=== PATIENT | male | born 1980 | race Caucasian/White ===

== ENCOUNTER 2025-01-07 08:50 | Outpatient (AMB) | payer BC, SELFPAY ==
--- NOTE | 2025-01-07 09:12 | MHC.OFFWIV ---
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 Intake Note: Patient here for tick bite under right arm. Patient Tobacco Use Status: Never used Tobacco Allergies No Known Allergies Allergy (Verified 01/07/25 09:13) Do you need a note to return to daycare/school/sports/work: No HPI HPI Comments History of Present Illness Details This is a 44-year-old male with no stated past medical history who woke this morning with a tick imbedded in his anterior chest wall. Patient took a shower, picked the tick off of his chest but tick parts visibly remain. He has no additional physical concerns. [facility] Social History Patient Tobacco Use Status: Never used Tobacco Review of Systems Const All systems reviewed & are unremarkable except as noted in HPI and below Denies chills, Denies fatigue and Denies fever(s) Eyes Reports no additional complaints ENT Reports no additional complaints Card Reports no additional complaints Resp Reports no additional complaints GI Reports no additional complaints Reports no additional complaints Musc Reports no additional complaints Skin/Breast Details: embedded tick right chest Neuro Reports no additional complaints Psych Reports no additional complaints Endo Reports no additional complaints and Denies fatigue Adan/Lymph Reports no additional complaints Physical Exam Vital Signs: Last Vital Signs Pulse 66 01/07/25 09:13 BP 118/70 01/07/25 09:13 Pulse Ox 98 01/07/25 09:13 Oxygen Delivery Method Room Air 01/07/25 09:13 Const General: cooperative, healthy appearing, comfortable and no acute distress; No ill appearing Nutritional Appearance: average body habitus Orientation/consciousness: patient oriented x3 Limitations: no limitations Skin Other: hyperpigmented foreign body right anterior chest wall, no surrounding erythema, edema or exudates Neuro General: patient oriented x3 Psych Appearance: grossly normal Mental Status: mental status grossly normal Insight: Good insight present (Psych) Judgement: Good judgement present (Psych) Office Procedures Incision and Drainage Incision and drainage performed by: Allison Mathews Informed consent given: Yes Consent signed: Yes Time out checklist: patient Location: right anterior chest wall Anesthesia: regional (topical 2% lidocaine) Incision with: needle (18g) Drainage quality: minimal-none Lesion: other (foreign body removal) Lesion size (cm): 2 (mm) Hemostasis: pressure Dressing: other (bandaid) Patient tolerated procedure: well Complications: No Additional details: Remnants of tick body are completely removed utilizing 2% lidocaine and an 18 gauge needle. Assessment & Plan Assessment & Plan (1) Tick bite with subsequent removal of tick: Comment: Foreign body completely removed. Patient tolerated the procedure well. Code(s): W57.XXXA - Bitten or stung by nonvenomous insect and other nonvenomous arthropods, initial encounter Plan: Doxycycline 200 mg x 1. Medications: New doxycycline hyclate 200 mg (2 x 100 mg) PO ONCE 2 caps 0RF Coding Level of Care Code Est Pt Level 4 (31581) Diagnoses Tick bite with subsequent removal of tick W57.XXXA Time Spent (min) 30
[2025-01-07 09:13] VITALS: BP 118/70; PULSE 66; O2SAT 98
== END 2025-01-07 09:51 | disposition home or self-care (01) ==
PROVIDERS: PCP Internal Medicine; Visit Provider Physician Assistant
DX: T63.481A Toxic effect of venom of other arthropod, accidental (unintentional), initial encounter (principal)

== ENCOUNTER → 2025-01-07 08:50 | Outpatient (BNVA) | payer BC, SELFPAY | PROVIDERS: PCP Internal Medicine; Visit Provider Physician Assistant ==

== ENCOUNTER 2025-02-25 09:53 | Outpatient (AMB) | payer BC, SELFPAY ==
--- NOTE | 2025-02-25 09:30 | A.OFFPC_ITS ---
Intake Visit Reasons: establish care Allergies No Known Allergies Allergy (Verified 01/07/25 09:13) Tobacco use date assessed: 02/25/25 Dental Screening Dental Screen Date: 02/25/25 [facility] Social History Patient Tobacco Use Status: Never used Tobacco Questionnaire PHQ-9 Over the last 2 weeks, how often have you been bothered by any of the following problems? 1. Little interest or pleasure in doing things: not at all 2. Feeling down, depressed, or hopeless: not at all 3. Trouble falling or staying asleep, or sleeping too much: not at all 4. Feeling tired or having little energy: not at all 5. Poor appetite or overeating: not at all 6. Feeling bad about yourself - or that you are a failure or have let yourself or your family down: not at all 7. Trouble concentrating on things, such as reading the newspaper or watching television: not at all 8. Moving or speaking so slowly that other people could have noticed. Or the opposite - being so fidgety or restless that you have been moving around a lot more than usual: not at all 9. Thoughts that you would be better off or of hurting yourself in some way: not at all Total score: 0 Source: Developed by Drs. Servando Jack, Thu Langston, Raj Han and colleagues, with an educational karis from [employer]. Thrive Questionnaire Date Thrive assessed: 02/25/25 I am a: Patient What is your living situation today?: I have a steady place to live Within the past 12 months, did the food you bought not last and you didn't have the money to get more?: Never true Within the past 12 months, did you worry whether your food would run out before you got money to buy more?: Never true Do you have trouble paying for medicines?: No Do you have trouble getting transportation to medical appointments?: No Do you have trouble paying your heating and electricity bill?: No Do you have trouble taking care of your child, family member or friend?: No Do you have trouble with day-to-day activities such as bathing, preparing meals, shopping, managing finances, etc.?: No Are you currently unemployed and looking for a job?: No Are you interested in more education?: No THRIVE Score: 0 Coding
--- NOTE | 2025-02-25 09:56 | MHC.PC.OV ---
Vital Signs 02/25/25 10:10 Height 5 ft 9.5 in Weight 170 lb 0.8 oz BMI 24.7 BP 116/60 Blood Pressure Location Rt brachial Pulse 73 Pulse Source Pulse Oximeter Temp 99.3 F Pulse Oximetry (%) 98 Intake Visit Reasons: establish care Intake Note: no issues had hernia surgery a few years ago but just moved into a house a few weeks ago and when he bent over he felt a sharp pain but it went awat. Allergies bee venom protein (honey bee) Allergy (Mild, Verified 02/25/25 10:16) Hives Medication List - Last Reconciled 02/25/25 by Lilly Escoto PA-C No Known Home Meds Tobacco use date assessed: 02/25/25 Dental Screening Dental Screen Date: 02/25/25 Did you have a dental visit in the last 12 months?: Yes Did you have a dental problem in the last 6 months where you did not have access to dental care?: No Was dental information given to patient?: No HPI establish care HPI Details The patient is a 45-year-old male presenting for a new patient appointment and preventative care. He reports a history of an inguinal hernia, which was surgically repaired three years ago. Recently, he experienced a sharp pain on the left side while bending over, lasting about 10 seconds, but has not noticed any bulge or recurrence of symptoms. The patient also mentions a tick bite in December, for which he received doxycycline treatment. He denies any current symptoms related to the tick bite. Additionally, the patient has a history of a skin lesion that was excised due to concerns about cancer. He plans to follow up with a director of elementary education for further evaluation. The patient reports past vision issues attributed to stress, which have since improved after consultation with a retinal specialist. [facility] Medical History (Updated 02/25/25 @ 11:51 by Lilly Escoto PA-C) Annual physical exam Establishing care with new doctor, encounter for Preventative health care Skin lesions Surgical History History of inguinal hernia repair Social History Housing: House Patient Tobacco Use Status: Never used Tobacco e-Cigarette/Vaping Use: Never Used service: No Current occupational status: employed Current occupation: professor Current occupational exposures/hazards: No Questionnaire PHQ-9 Over the last 2 weeks, how often have you been bothered by any of the following problems? 1. Little interest or pleasure in doing things: not at all 2. Feeling down, depressed, or hopeless: not at all 3. Trouble falling or staying asleep, or sleeping too much: not at all 4. Feeling tired or having little energy: not at all 5. Poor appetite or overeating: not at all 6. Feeling bad about yourself - or that you are a failure or have let yourself or your family down: not at all 7. Trouble concentrating on things, such as reading the newspaper or watching television: not at all 8. Moving or speaking so slowly that other people could have noticed. Or the opposite - being so fidgety or restless that you have been moving around a lot more than usual: not at all 9. Thoughts that you would be better off or of hurting yourself in some way: not at all Total score: 0 Depression Screening Interpretation: Negative Depression Screening Done: Yes [id number] - PHQ-9 Billing: Yes Source: Developed by Drs. Servando Jack, Thu Langston, Raj Han and colleagues, with an educational karis from [employer]. Thrive Questionnaire Date Thrive assessed: 02/25/25 I am a: Patient What is your living situation today?: I have a steady place to live Within the past 12 months, did the food you bought not last and you didn't have the money to get more?: Never true Within the past 12 months, did you worry whether your food would run out before you got money to buy more?: Never true Do you have trouble paying for medicines?: No Do you have trouble getting transportation to medical appointments?: No Do you have trouble paying your heating and electricity bill?: No Do you have trouble taking care of your child, family member or friend?: No Do you have trouble with day-to-day activities such as bathing, preparing meals, shopping, managing finances, etc.?: No Are you currently unemployed and looking for a job?: No Are you interested in more education?: No THRIVE Score: 0 AUDIT C Alcohol Use Questionnaire (AUDIT-C) 1. How often do you have a drink containing alcohol?: 2-3 times a week 2. How many drinks containing alcohol do you have on a typical day when you are drinking?: 1 or 2 3. How often do you have six or more drinks on one occasion?: Never Total Score: 3 Score Reviewed/Action Taken: No VALDEZ-7 AMB Questionnaire VALDEZ-7 Date VALDEZ - 7 assessed: 02/25/25 Feeling nervous, anxious, or on edge: 0 = Not at all Not being able to stop or control worryin = Not at all Worrying too much about different things: 0 = Not at all Trouble relaxin = Not at all Being so restless that it is hard to sit still: 0 = Not at all Becoming easily annoyed or irritable: 0 = Not at all Feeling afraid as if something awful might happen: 0 = Not at all Total VALDEZ-7 score (0-4 normal; 5-9 mild; 10-14 moderate; 15-21 severe): 0 Source: Developed by Drs. Servando Jack, Thu Langston, Raj Han and colleagues, with an educational karis from [employer]. VALDEZ-7 Assessment Billing VALDEZ-7 Assessment Tool: VALDEZ-7 Assessment 96790 Review of Systems Const Details: - Gastrointestinal: Denies abdominal pain or bulge recurrence - Dermatological: Denies rashes - Genitourinary: Denies urinary issues - Neurological: Denies recent falls Physical exam (Primary Care) Vital Signs: Last Vital Signs Temp 99.3 F 02/25/25 10:10 Pulse 73 02/25/25 10:10 BP 116/60 02/25/25 10:10 Pulse Ox 98 02/25/25 10:10 Care Plan Goal for BP management: <140/90 at Goal BMI result Body Mass Index 24.7 Normal BMI Tobacco/Smoking Status: Tobacco use Status Tobacco use date assessed 02/25/25 02/25/25 10:11 Patient Tobacco Use Status Never used Tobacco 02/25/25 10:11 e-Cigarette/Vaping Use Never Used 02/25/25 10:11 PHQ-9: PHQ-9 Score PHQ-9: Total score 0 02/25/25 10:13 Depression Screening Interpretation: Negative Thrive Assessment: Date of Thrive Assessment Date Thrive assessed 02/25/25 02/25/25 10:11 Const Other: Appearance: Alert. Oriented X3. No acute distress. Head: Normal external exam. Normocephalic. Atraumatic. Eyes: Pupils are equal, round, and reactive to light. Extraocular movements intact. Conjunctiva and sclera normal. Eyelids normal. Patient reported a history of strange vision and a leaking issue in the left eye, which was evaluated by a retinal specialist and is currently resolved. Ears: External auditory canal normal. Tympanic membranes normal. Throat: Pharynx normal. Uvula midline. Moist mucous membranes. Neck: Normal inspection. Neck supple. Full range of motion. No adenopathy. Thyroid Normal. No meningeal signs. No neck mass noted. Cardiovascular: Normal heart rate and rhythm. Heart sound normal. No murmurs noted. Pulses normal throughout. Respiratory: No respiratory distress. Painless inspiration. Breath sounds normal. No wheezes/rales/rhonchi noted. Chest nontender. No accessory muscle usage noted or decreased air movement noted. Abdomen: Soft and nontender. Bowel sounds normal in all 4 quadrants. No distention noted. No organomegaly noted. No visible injury noted. Patient reported a history of sharp pain on the left side, which lasted for about 10 seconds and has since resolved. Back: No costovertebral angle tenderness. Full range of motion noted. Skin: Skin warm and dry. Normal skin color. Normal skin turgor. No rashes/lacerations noted. Patient has a history of skin lesions, with one previously excised due to cancer concerns. Referral to dermatology recommended for further assessment. Extremities: No lower extremity edema. Extremities exhibit normal range of motion. Extremities nontender. Neuro: Oriented X 3. No motor deficit. No sensory deficit. Reflexes normal. Coding Level of Care Code Est Pt Level 4 (35825) Est Pt Prev Care 40-64y(03126) Diagnoses Establishing care with new doctor, encounter for Z76.89 Annual physical exam Z00.00 History of inguinal hernia repair Z98.890; Z87.19 Preventative health care Z00.00 Skin lesions L98.9 Additional Codes PHQ-9 - 77510 - PHQ-9 Billing: Yes ([id number]) VALDEZ-7 Assessment Billing - VALDEZ-7 Assessment Tool: VALDEZ-7 Assessment [id number] ([id number]) Assessment & Plan Assessment & Plan (1) Establishing care with new doctor, encounter for: Code(s): Z76.89 - Persons encountering health services in other specified circumstances Category: Medical (2) Annual physical exam: Code(s): Z00.00 - Encounter for general adult medical examination without abnormal findings Category: Medical (3) History of inguinal hernia repair: Code(s): Z98.890 - Other specified postprocedural states; Z87.19 - Personal history of other diseases of the digestive system Category: Surgical Plan: The patient experienced a brief episode of sharp pain on the left side, which resolved spontaneously without recurrence of symptoms or bulge. Continued monitoring is advised, and the patient should report any new symptoms or changes. (4) Preventative health care: Code(s): Z00.00 - Encounter for general adult medical examination without abnormal findings Category: Medical Plan: Routine blood work is planned to assess cholesterol levels, diabetes screening, and prostate-specific antigen levels. The patient is advised to fast before the blood draw. (5) Skin lesions: Code(s): L98.9 - Disorder of the skin and subcutaneous tissue, unspecified Category: Medical Plan: A referral to dermatology is provided for further evaluation of skin lesions, given the patient's history of excised lesions due to cancer concerns. Plan Plan Patient was informed and verbally consented to the use of an ambient scribe for clinic note documentation during this visit. 1. Inguinal Hernia With Past Surgical Repair The patient experienced a brief episode of sharp pain on the left side, which resolved spontaneously without recurrence of symptoms or bulge. Continued monitoring is advised, and the patient should report any new symptoms or changes. 2. Preventative Care: Blood Work Including Cholesterol, Diabetes Screening, And Prostate Level Routine blood work is planned to assess cholesterol levels, diabetes screening, and prostate-specific antigen levels. The patient is advised to fast before the blood draw. 3. Preventative Care: Dermatology Referral For Skin Lesion Assessment A referral to dermatology is provided for further evaluation of skin lesions, given the patient's history of excised lesions due to cancer concerns. During the visit, I discussed the importance of routine blood work to monitor cholesterol, diabetes, and prostate health. I also emphasized the need for dermatological evaluation due to the patient's history of skin lesions. The patient was informed about the fasting requirement for the blood tests and was advised to monitor for any new symptoms related to his past hernia repair. Orders: Orders Complete Blood Count Auto Diff Today Z00.00 - Encounter for general adult medical examination without abnormal findings Comprehensive [place]. Panel Fast Today Z.00 - Encounter for general adult medical examination without abnormal findings Hemoglobin A1c Today Z00.00 - Encounter for general adult medical examination without abnormal findings TSH reflex Free T4 Today Z00.00 - Encounter for general adult medical examination without abnormal findings C Reactive Protein Today Z.00 - Encounter for general adult medical examination without abnormal findings PSA,Total (Free>4and<10) Today Z00.00 - Encounter for general adult medical examination without abnormal findings Magnesium Today Z00.00 - Encounter for general adult medical examination without abnormal findings Lipid Panel Today Z00.00 - Encounter for general adult medical examination without abnormal findings Liver Panel Today Z00.00 - Encounter for general adult medical examination without abnormal findings Vitamin B12 and Folate Today Z.00 - Encounter for general adult medical examination without abnormal findings Erythrocyte Sedimentation Rate Today Z00.00 - Encounter for general adult medical examination without abnormal findings Vitamin D 25-OH Total Today Z00.00 - Encounter for general adult medical examination without abnormal findings Lyme IgG/IgM w/reflex to WB Today Z00.00 - Encounter for general adult medical examination without abnormal findings Referrals Dermatology Referral L98.9 - Disorder of the skin and subcutaneous tissue, unspecified Patient Instructions: - Schedule and complete blood work, ensuring to fast for 10-12 hours prior. - Follow up with dermatology for skin lesion evaluation. - Monitor for any new symptoms related to past hernia repair and report them promptly.
[2025-02-25 10:10] VITALS: BP 116/60; PULSE 73; TEMP 37.4; O2SAT 98; BMI 24.7
== END 2025-02-25 10:33 | disposition home or self-care (01) ==
LOC: HO.HMCSH 09:53
PROVIDERS: PCP Internal Medicine; Visit Provider Physician Assistant Medical
DX: Z00.00 Encounter for general adult medical examination without abnormal findings (principal); L98.9 Disorder of the skin and subcutaneous tissue, unspecified; Z76.89 Persons encountering health services in other specified circumstances; Z98.890 Other specified postprocedural states; Z87.19 Personal history of other diseases of the digestive system

== ENCOUNTER → 2025-02-25 09:53 | Outpatient (BNVA) | payer BC, SELFPAY | PROVIDERS: PCP Internal Medicine; Visit Provider Physician Assistant Medical | DX: Z00.00 Encounter for general adult medical examination without abnormal findings (principal); Z76.89 Persons encountering health services in other specified circumstances; L98.9 Disorder of the skin and subcutaneous tissue, unspecified; Z87.19 Personal history of other diseases of the digestive system | CPT/HCPCS: 96127 ==

== ENCOUNTER 2025-02-28 07:38 | Outpatient (REF) | payer BC, SELFPAY ==
[2025-02-28 10:36] LABS: MANUAL DIFF FLAG NO
[2025-02-28 10:42] LABS: Hematocrit 42.7 % (42.0-52.0); Hemoglobin 14.9 g/dl (14.0-18.0); Imm Gran Abs Auto 0.02 X10*3/uL (0.00-0.03); Imm Gran Pct Auto 0.3 % (0.0-0.4); Lymphocytes Absolute Auto 1.2 X10*3/uL (1.2-4.9); Mean Corpuscular HGB Conc 34.9 g/dl (31.0-36.0); Mean Corpuscular Hemoglobin 29.7 pg (27.0-33.0); Mean Corpuscular Volume 85.1 fL (80.0-98.0); NRBC Abs Auto 0.000 X10*3/uL (0.0-0.012); NRBC Pct Auto 0.0 /100WBC (0.0-0.2); Platelet Count 246 X10*3/uL (160-400); Red Blood Count 5.02 X10*6/uL (4.60-5.80); White Blood Count 6.6 X10*3/uL (4.8-10.8)
[2025-02-28 10:57] LABS: Hemoglobin A1C 108.8566 umol/L; Total Hemoglobin (HGBA1C) 3838.4885 umol/L
[2025-02-28 11:09] LABS: PSA,Total (Free>4and<10) 0.23 ng/mL (0.00-4.00)
[2025-02-28 11:12] LABS: Alanine Aminotransferase 26 U/L (0-40); Albumin Level 4.9 g/dL (3.5-5.0); Alkaline Phosphatase 76 U/L (39-117); Anion Gap 12 (12-20); Aspartate Amino Transferase 29 U/L (5-37); Blood Urea Nitrogen 12 mg/dL (9-16); Calcium 9.1 mg/dL (8.4-10.2); Carbon Dioxide 24 mmol/L (22-29); Chloride 108 mmol/L (96-108); Cholesterol 210 mg/dL (<200); Estimated Glomerular Filt Rate > 60; HDL Cholesterol 57 mg/dL (>40); Magnesium 2.1 mg/dL (1.6-2.6); Potassium 3.8 mmol/L (3.3-5.1); Sodium 140 mmol/L (135-145); Total Protein 6.9 g/dL (6.5-8.0); Triglycerides 74 mg/dL (<150)
[2025-02-28 11:24] LABS: Folate 10.9 ng/mL (> or = 4.0); Vitamin B12 232 pg/mL (200-900)
[2025-03-03 21:13] LABS: Lyme Abs Screen <0.90 index
== END 2025-02-28 07:39 | disposition home or self-care (01) ==
LOC: HO.HMGCLDS 07:38
PROVIDERS: Visit Provider Physician Assistant Medical
DX: H61.21 Impacted cerumen, right ear (principal); Z00.00 Encounter for general adult medical examination without abnormal findings; Z12.5 Encounter for screening for malignant neoplasm of prostate
CPT/HCPCS: 36415; 69210; 80053; 80061; 80076; 82248; 82306; 82607; 82746; 83036; 83735; 84153; 84443; 85025; 85652; 86140; 86617; 86618

== ENCOUNTER 2025-02-28 08:02 | Outpatient (AMB) | payer BC, SELFPAY ==
[2025-02-28 08:07] VITALS: BP 106/60; PULSE 88; TEMP 36.7; O2SAT 97; BMI 24.7
--- NOTE | 2025-02-28 08:07 | MHC.OFFWIV ---
Intake Vital Signs 02/28/25 08:07 Height 5 ft 9.5 in Weight 170 lb BMI 24.7 BP 106/60 Blood Pressure Location Lt brachial Position Sitting Pulse 88 Pulse Source Pulse Oximeter Temp 98.1 F Temp Source Oral Pulse Oximetry (%) 97 Oxygen Delivery Method Room Air Intake Visit Reasons: EP Wax build up in rt ear Intake Note: presents with right ear pressure/wax build up Patient Tobacco Use Status: Never used Tobacco Allergies bee venom protein (honey bee) Allergy (Mild, Verified 02/28/25 08:08) Hives Do you need a note to return to daycare/school/sports/work: No HPI HPI Comments History of Present Illness Details This is a 45-year-old male with no stated past medical history presenting for evaluation of cerumen impaction in his right ear. Patient states last night they smoke alarm went off in his house and he felt that his right ear was clogged. Patient states he has minimal discomfort in his right ear and no concerns with his left ear. Patient denies having any fevers, chills, pharyngitis or discharge from his ears bilaterally. [facility] Medical History (Updated 02/28/25 @ 08:57 by Allison Valverde PA-C) Annual physical exam Establishing care with new doctor, encounter for Preventative health care Skin lesions Surgical History (Updated 02/25/25 @ 13:40 by Lilly Escoto PA-C) History of colonoscopy (~10/2023) History of inguinal hernia repair Social History Housing: House Patient Tobacco Use Status: Never used Tobacco e-Cigarette/Vaping Use: Never Used service: No Current occupational status: employed Current occupation: professor Current occupational exposures/hazards: No Review of Systems Const All systems reviewed & are unremarkable except as noted in HPI and below Reports no additional complaints Eyes Reports no additional complaints ENT Denies vertigo, Denies dizziness, Reports otalgia (mild discomfort right ear) and Reports hearing loss (decreased hearing right ear) Card Reports no additional complaints Resp Reports no additional complaints GI Reports no additional complaints Reports no additional complaints Musc Reports no additional complaints Neuro Reports no additional complaints, Denies vertigo and Denies dizziness Psych Reports no additional complaints Endo Reports no additional complaints Adan/Lymph Reports no additional complaints Aller/Immun Reports no additional complaints Physical Exam Vital Signs: Last Vital Signs Temp 98.1 F 02/28/25 08:07 Pulse 88 02/28/25 08:07 BP 106/60 02/28/25 08:07 Pulse Ox 97 02/28/25 08:07 Oxygen Delivery Method Room Air 02/28/25 08:07 BMI result Body Mass Index 24.7 Const General: cooperative, healthy appearing, comfortable and no acute distress Nutritional Appearance: average body habitus Orientation/consciousness: patient oriented x3 Limitations: no limitations HEENT Head: Yes normal to inspection Ears: hearing grossly normal bilaterally, external ears normal, TM normal on the left and Abnormal EAC present cerumen impaction on the right General nose exam: Normal external nose present Neuro General: patient oriented x3 Psych Appearance: grossly normal Mental Status: mental status grossly normal Insight: Good insight present (Psych) Judgement: Good judgement present (Psych) Office Procedures Cerumen Removal From which ear canal was the cerumen removed: right Removal: otoscope w/curette Notes: patient tolerated procedure well, no complications and ear canal clear [id number] Wax Removal by Spoon/Curette Assessment & Plan Assessment & Plan (1) Impacted cerumen of right ear: Comment: Cerumen from right ear is completely evacuated. Patient will be discharged home. Code(s): H61.21 - Impacted cerumen, right ear Plan: Follow up only as needed. Coding Level of Care Code Est Pt Level 3 (00652) Diagnoses Impacted cerumen of right ear H61.21 CPT Codes Office Procedure - CPT: 94213-Luy Wax Removal by Spoon/Curette ([id number]) Time Spent (min) 25
== END 2025-02-28 09:18 | disposition home or self-care (01) ==
PROVIDERS: PCP Internal Medicine; Visit Provider Physician Assistant
DX: H61.21 Impacted cerumen, right ear (principal)